=== PATIENT | female | born 1975 | race Caucasian/White ===

== ENCOUNTER 2017-03-19 09:13 | Day surgery (SDC) | payer BC ==
[~2017-03-19 09:13] MED LIST: Buffered Lidocaine 0.9% SYRIN* 5 ML/SYR SYRINGE INTRADERM ONE; Famotidine TAB* 20 MG PO ONE
[2017-03-19] MEDS ORDERED: ceFAZolin 2 GM PREMIX(*) 2 GM/50 ML BAG IVPB ONE (09:16)
[2017-03-19] MEDS ORDERED: Famotidine TAB* 20 MG ONE (09:16)
[2017-03-19 10:00] LABS: Manual Entry Verification JEA0012; UR Preg Internal Control QC Line Present
[2017-03-19] MEDS ORDERED: Midazolam* 1 MG/ML 5 ML VIAL (5 MG) ONE (10:23)
[2017-03-19] MEDS ORDERED: fentaNYL* 50 MCG/ML 2 ML VIAL (100 MCG VIAL) ONE ×2 (10:23→12:32)
[2017-03-19] MEDS ORDERED: Ondansetron INJ* 2 MG/ML VIAL ONE (10:23)
[2017-03-19] MEDS ORDERED: Lidocaine 2% PF * 5 ML VIAL ONE (10:23)
[2017-03-19] MEDS ORDERED: Propofol* 10 MG/ML 20 ML BTL IV PUSH ONE (10:23)
[2017-03-19] MEDS ORDERED: KETAMINE HCL* 50 MG/ML 10 ML VIAL ONE (10:23)
[2017-03-19] MEDS ORDERED: Dexamethasone IV* 4 MG/ML 1 ML (4 MG) ONE (10:23)
[2017-03-19] MEDS ORDERED: Cisatracurium* 2 MG/ML MDV 5 ML ONE (10:23)
[2017-03-19] MEDS ORDERED: Ketorolac INJ* 30 MG/ML 1 ML VIAL ONE (10:23)
[2017-03-19] MEDS ORDERED: Bupivacaine 0.25% EPI 200,000* 30 ML SDV ONE (10:52)
[2017-03-19] MEDS ORDERED: Levalbuterol HFA INHALER* 1 PUFF MDI ONE (11:23)
[2017-03-19] MEDS ORDERED: HYDROmorphone* 1 MG/ML 1 ML SYR IV PRN (11:38)
[2017-03-19] MEDS ORDERED: oxyCODONE/Acetamin 5/325 MG* TAB PO PRN (11:38)
[2017-03-19] MEDS ORDERED: Ondansetron INJ* 2 MG/ML VIAL IV PRN (11:38)
[2017-03-19] MEDS ORDERED: fentaNYL* 50 MCG/ML 2 ML VIAL (100 MCG VIAL) IV PRN (11:38)
[2017-03-19] MEDS ORDERED: EPHEDrine (Pressors)* 50 MG/ML VIAL ONE (11:42)
--- NOTE | 2017-03-19 12:03 | PN ---
Progress Note - Progress Note Date of Service: 03/19/17 Note: Brief Operative Note Date: 03/19/2017 Pre-operative dx: Cholelithiasis Post-operative dx: same Procedure: Laparoscopic cholecystectomy Surgeon: Dr. Nielsen Scouring Machine Tender: Ashley Rojas Anesthesia: GETA EBL: 20 mL Fluids: 1300 mL LR Catheter: None Drains: None Specimen: Gallbladder Finding: See Dictated op note
[2017-03-19] MEDS ORDERED: oxyCODONE/Acetamin 5/325 MG* TAB ONE (12:29)
[2017-03-19 14:11] VITALS: BP 120/70
--- NOTE | 2017-03-20 03:04 | OP ---
CC: Dr. Telly Fernández * DATE OF OPERATION: 03/19/17 - [facility] DATE OF : 75 SURGEON: Hong Nielsen MD BULLDOZER MECHANIC: ESEQUIEL Lopez ANESTHESIOLOGIST: Dr. Jean-Pierre Stockton. ANESTHESIA: General anesthetic, local infiltration. PRE-OP DIAGNOSIS: Biliary colic. POST-OP DIAGNOSIS: Biliary colic. OPERATIVE PROCEDURE: Laparoscopic cholecystectomy. DESCRIPTION OF PROCEDURE: The patient was supine on the operative table. After adequate general anesthetic, compression stockings, Ana Hugger warmer, and intravenous antibiotics, the abdomen was prepped with antiseptic and draped in a sterile fashion. Local infiltrative anesthesia was administered. Small umbilical incision was created. A blunt port was cannula was placed. Insufflation was carried out with carbon dioxide. Additional cannulae, 12 mm subxiphoid and 5 mm right upper quadrant and right anterior axillary line were placed through small stab wounds under direct vision. The gallbladder was tented upward and had a lot of fatty areolar tissue encasing it, but as this was dissected free. There was really no inflammation of the gallbladder wall. The cystic duct and cystic artery readily identified, clipped and divided. The gallbladder was taken up off the liver bed using electrocautery. Hemostasis was excellent. There was no spillage. The gallbladder was removed through the subxiphoid port without difficulty. The operative field was in excellent condition. The cannulae were removed. Pneumoperitoneum allowed to escape. Umbilical fascia was closed with 0 Polysorb, skin with 5-0 Polysorb in all cases followed by Steri-Strips. She tolerated the procedure well, was awakened , extubated and brought to Recovery in good condition. No complications. No drains. Pathologic specimen is gallbladder. Sponge and instrument counts correct. Estimated blood loss is 10 mL. [id number]/CPS #: [id number] [facility] [place]
== END 2017-03-19 13:35 | disposition home or self-care (01) ==
LOC: OR 09:13
PROVIDERS: ATTEND Surgery
DX: K81.1 Chronic cholecystitis (principal); F17.210 Nicotine dependence, cigarettes, uncomplicated
CPT/HCPCS: 81025; 88304; A9270-GY; J0690; J1100; J1885; J2250; J2405; J2704; J3010